=== PATIENT | female | born 1960 | race Caucasian/White ===

== ENCOUNTER → 2017-12-07 | Outpatient (REF) | payer OTHER | LOC: M SFHCLERA 15:44 | DX: R35.0 Frequency of micturition (principal) ==

== ENCOUNTER → 2021-01-25 | Outpatient (CLI) | payer OTHER ==
--- NOTE | 2021-01-26 13:57 | ECGEPIP ---
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 Electronically Signed on 01-26-2021 13:57:18 EDT by Mello Iqbal
== END ==
LOC: M EKG 16:54
PROVIDERS: ATTEND Orthopaedic Surgery
DX: Z01.810 Encounter for preprocedural cardiovascular examination (principal); R94.31 Abnormal electrocardiogram [ECG] [EKG]